=== PATIENT | female | born 2000 | race Caucasian/White ===

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

== ENCOUNTER 2018-03-31 21:17 | Emergency (ER) | payer OTHER ==
[~2018-03-31] VITALS: Ht 175.3 cm; Wt 98.0 kg
[2018-03-31 21:33] VITALS: BP 131/75
--- NOTE | 2018-03-31 21:38 | NUR ---
PT AMBULATED TO LOBBY WITH VSS.
--- NOTE | 2018-03-31 23:02 | NUR ---
PT TO ER BED 3
--- NOTE | 2018-03-31 23:02 | NUR ---
Tunde balbuena in [facility] - 03/31/18 at 2304 by MEDDM TO ER BED 9
--- NOTE | 2018-03-31 23:15 | NUR ---
17 YO F TO ER W/C/O R HAND AND WRIST PAIN . PT STATES "A OLD TV FELL ON MY HAND AFTER TRYING TO MOVE IT" YESTERDAY EVENING . SMALL BRUISE NOTED TO R WRIST. NO SWELLIN OR REDNESS NOTED NO DEFORMITY NOTED. NO OTHER MEDICAL C/O AT THIS TIME. WILL CONTINUE TO MONITOR. 5/10 PAIN, TENDER TO TOUCH. ER MD MADE AWARE. PT POSITIONED FOR COMFORT
--- NOTE | 2018-03-31 23:58 | NUR ---
DR. GARY EVALUATING AT BEDSIDE
[2018-04-01 00:52] VITALS: BP 131/75
--- NOTE | 2018-04-01 00:52 | NUR ---
Patient discharged with v/s stable. Written and verbal after care instructions given and explained. Patient alert, oriented and verbalized understanding of instructions. Ambulatory with steady gait. All questions addressed prior to discharge. ID band removed. Patient advised to follow up with PMD. Rx of IBUPROFEN WAS given. Patient educated on indication of medication including possible reaction and side effects. Opportunity to ask questions provided and answered.
== END 2018-04-01 00:52 | disposition home or self-care (01) ==
LOC: MED 21:17
DX: S60.211A Contusion of right wrist, initial encounter (principal); W31.89XA Contact with other specified machinery, initial encounter; Y93.89 Activity, other specified; Y92.89 Other specified places as the place of occurrence of the external cause; Y99.8 Other external cause status
CPT/HCPCS: 73110; 81002; 81025; 99284

== ENCOUNTER 2018-11-24 18:02 | Emergency (ER) | payer OTHER ==
[~2018-11-24] VITALS: Ht 172.7 cm; Wt 133.4 kg
[2018-11-24 18:11] VITALS: BP 152/76
--- NOTE | 2018-11-24 19:57 | NUR ---
PT TO ED WITH C/O L FOOT PAIN S/P TRIPPING OVER A BACKPACK. SWELLING NOTED WITH LIMITED ROM OF FOOT. CMS INTACT. PEDAL PULSES PRESENT AND REGULAR. NO OBVIOUS DEFROMTIY NOTED. PT PLACED INTO ED CHAIR PENDING PROVIDER EVAL.
[2018-11-24 20:05] VITALS: BP 152/76
== END 2018-11-24 20:05 | disposition home or self-care (01) ==
LOC: MED 18:02
DX: S93.602A Unspecified sprain of left foot, initial encounter (principal); W01.0XXA Fall on same level from slipping, tripping and stumbling without subsequent striking against object, initial encounter; Y93.89 Activity, other specified; Y92.89 Other specified places as the place of occurrence of the external cause; Y99.8 Other external cause status
CPT/HCPCS: 73630; 99283

== ENCOUNTER 2019-05-11 17:21 | Emergency (ER) | payer OTHER ==
[~2019-05-11] VITALS: Ht 175.3 cm; Wt 133.8 kg
[2019-05-11 17:36] VITALS: BP 119/61
--- NOTE | 2019-05-11 17:50 | NUR ---
PT LEFT FOR X-RAY VIA WHEELCHAIR PER TECH.
--- NOTE | 2019-05-11 18:08 | NUR ---
12 LEAD EKG DONE, SHOWED TO AYDEN ADKINS. OK TO WAIT IN LOBBY. PT AMBULATES TO LOBBY IN STABLE CONDITION.
--- NOTE | 2019-05-11 19:05 | NUR ---
AMBULATED TO BED 7.
--- NOTE | 2019-05-11 19:15 | NUR ---
PT BIB SELF WITH C/O CHEST DISCOMFORT X3 MONTHS. PT STATES BUMP IN CENTER OF CHEST THAT IS TENDER TO TOUCH. RR EVEN AND UNLABORED. NO REDNESS OR BRUISING TO AREA. PT DENIES TRAUMA TO CHEST. PT STATES SHE SAW PCP BUT THEY "SAID IT WAS NOTHING" PT HAS NOT TAKEN ANY MEDICATIONS FOR PAIN. VSS AT THIS TIME. MEDHX: DENIES ALLERGIES: DENIES
--- NOTE | 2019-05-11 19:37 | NUR ---
DR. GREEN BEDSIDE EVALUATING PT
[2019-05-11] MEDS ORDERED: KETOROLAC 30 MG/ML VIAL IM ONE (19:40)
[2019-05-11 19:52] VITALS: BP 119/61
--- NOTE | 2019-05-11 19:53 | NUR ---
Patient discharged with v/s stable. Written and verbal after care instructions given and explained. Patient alert, oriented and verbalized understanding of instructions. Ambulatory with to home. All questions addressed prior to discharge. ID band removed. Patient advised to follow up with PMD. Rx of NAPROSYN 500 MG given. Patient educated on indication of medication including possible reaction and side effects. Opportunity to ask questions provided and answered.
== END 2019-05-11 19:53 | disposition home or self-care (01) ==
LOC: MED 17:21
DX: R07.89 Other chest pain (principal); F41.9 Anxiety disorder, unspecified; F32.9 Major depressive disorder, single episode, unspecified
CPT/HCPCS: 71046; 93005; 96372; 99283; J1885

== ENCOUNTER 2019-06-07 17:20 | Emergency (ER) | payer OTHER ==
[~2019-06-07] VITALS: Ht 175.3 cm; Wt 117.5 kg
[2019-06-07 17:29] VITALS: BP 135/115
--- NOTE | 2019-06-07 17:36 | NUR ---
WAIT AT LOBBY
--- NOTE | 2019-06-07 17:40 | NUR ---
PT TAKEN TO X RAY.
--- NOTE | 2019-06-07 17:52 | NUR ---
PATIENT AMBULATED TO BED 1
--- NOTE | 2019-06-07 18:03 | NUR ---
MD AT BEDSIDE EVALUATING PATIENT
--- NOTE | 2019-06-07 18:13 | NUR ---
18 Y/O FEMALE, PRESENTED WITH C/C OF WRIST PAIN DUE TO FALL. PER PATIENT SHE FELL AND HYPEREXTENDED HER RIGHT WRIST, PAIN IS 6/10, RADIATING TO UPPER ARM. PATIENT DENIES HITTING HEAD WHEN FELL. WILL CONTINUE TO MONITOR. SIDE RAIL X1. FAMILY AT BEDSIDE.
[2019-06-07] MEDS ORDERED: IBUPROFEN 800 MG TAB PO ONE (18:15)
--- NOTE | 2019-06-07 19:06 | NUR ---
RECEIVED REPORT FROM ELIAS MARQUEZ. TRANSFER OF CARE AT THIS TIME
--- NOTE | 2019-06-07 19:17 | NUR ---
PT STATES RELIEF OF PAIN. 07/31 ACHING AT THIS TIME
[2019-06-07 19:18] VITALS: BP 133/81
--- NOTE | 2019-06-07 19:18 | NUR ---
Patient discharged with v/s stable. Written and verbal after care instructions given and explained. Patient alert, oriented and verbalized understanding of instructions. Ambulatory with steady gait. All questions addressed prior to discharge. ID band removed. Patient advised to follow up with PMD. Rx of MOTRIN 800MG given. Patient educated on indication of medication including possible reaction and side effects. Opportunity to ask questions provided and answered. ACCOMPANIED BY FRIEND UPON DISCHARGE.
== END 2019-06-07 19:18 | disposition home or self-care (01) ==
LOC: MED 17:20
DX: S63.501A Unspecified sprain of right wrist, initial encounter (principal); W19.XXXA Unspecified fall, initial encounter; Y93.89 Activity, other specified; Y92.89 Other specified places as the place of occurrence of the external cause; Y99.8 Other external cause status
CPT/HCPCS: 73110; 99283

== ENCOUNTER 2019-06-21 11:45 | Emergency (ER) | payer OTHER ==
[~2019-06-21] VITALS: Ht 175.3 cm; Wt 129.8 kg
[2019-06-21 11:55] VITALS: BP 139/76
--- NOTE | 2019-06-21 12:06 | NUR ---
RT WRIST PAIN, SEEN IN ED DX WITH WRIST FRACTURE 2-3WEEKS AGO, PAIN INCREASING. SPLINT IN PLACE.. DENIES N/V/D; SKIN IS PINK/WARM/DRY; AAOX4 WITH EVEN AND STEADY GAIT; LUNGS CLEAR BL; HR EVEN AND REGULAR; PT DENIES ANY FEVER, CP, SOB, OR COUGH AT THIS TIME; PATIENT STATES PAIN OF 5/10 AT THIS TIME; VSS; PATIENT POSITIONED FOR COMFORT; HOB ELEVATED; BEDRAILS UP X2; BED DOWN. ER MD MADE AWARE OF PT STATUS. FAMILY AT BEDSIDE.
--- NOTE | 2019-06-21 12:47 | NUR ---
X-Ray at bedside.
--- NOTE | 2019-06-21 13:31 | NUR ---
applied cindi wrap to right wrist without any issues
[2019-06-21 14:05] VITALS: BP 122/78
== END 2019-06-21 14:03 | disposition home or self-care (01) ==
LOC: MED 11:45
DX: M25.531 Pain in right wrist (principal)
CPT/HCPCS: 73100; 99283

== ENCOUNTER 2019-07-18 14:59 | Emergency (ER) | payer OTHER ==
[~2019-07-18] VITALS: Ht 175.3 cm; Wt 128.4 kg
[2019-07-18 15:10] VITALS: BP 135/99
--- NOTE | 2019-07-18 15:18 | NUR ---
Pt taken to bed 12.
--- NOTE | 2019-07-18 15:27 | NUR ---
18/F C/O NONBLOODY EMESIS "ALL DAY" X 3 DAYS. ALSO REPORTS SORE THROAT, COUGH, CONGESTION X 1 WK. DENIES FEVER, ABD PAIN. AFEBRILE AT TRIAGE. TACHY 120S. BEDRAILS UP X1; ERMD TO EVALUATE.
--- NOTE | 2019-07-18 15:30 | NUR ---
PT TO BATHROOM WITH STEADY GAIT TO PROVIDE URINE SAMPLE.
--- NOTE | 2019-07-18 15:36 | NUR ---
PT VOIDED A FEW CC--ASKED PT TO TRY AGAIN LATER.
--- NOTE | 2019-07-18 15:43 | NUR ---
DR OWUSU EVALUATING PT AT BEDSIDE
[2019-07-18] MEDS ORDERED: KETOROLAC 60 MG/2 ML VIAL IM ONE (16:00)
[2019-07-18] MEDS ORDERED: MECLIZINE 25 MG TAB PO ONE (16:00)
[2019-07-18] MEDS ORDERED: PROMETHAZINE 25 MG/ML VIAL IM ONE (16:00)
[2019-07-18] MEDS ORDERED: ALBUTEROL SULFATE/IPRATROPIU 3 ML SOL IH ONE (16:00)
[2019-07-18] MEDS ORDERED: FAMOTIDINE 20 MG TAB PO ONE (16:00)
--- NOTE | 2019-07-18 16:16 | NUR ---
RT AT BEDSIDE FOR RESPIRATORY INTERVENTION
[2019-07-18 16:46] LABS: APPEARANCE,URINE HAZY (CLEAR); BILIRUBIN,URINE NEGATIVE (NEGATIVE); BLOOD, URINE TRACE-I (NEGATIVE); COLOR,URINE YELLOW (YELLOW); LEUKOCYTE ESTERASE ,URINE NEGATIVE (NEGATIVE); NITRITE, URINE NEGATIVE (NEGATIVE); UGLUCOSE NEGATIVE (NEGATIVE)
[2019-07-18 16:47] LABS: BARBITURATE, URINE NEG. ng/ml (NEG <=200); BENZODIAZEPINE, URINE NEG. ng/mL (NEG <=200); CANNABINOID, URINE NEG. ng/mL (NEG <=50); COCAINE, URINE NEG. ng/mL (NEG <=300); OPIATE, URINE NEG. ng/mL (NEG <=2000); PHENCYCLIDINE SCREEN,URINE NEG. ng/mL (NEG <=25)
--- NOTE | 2019-07-18 17:01 | NUR ---
PT IN BED, NAD, SCROLLING ON PHONE. STATES FEELS "BETTER".
--- NOTE | 2019-07-18 17:44 | NUR ---
DR. OWUSU SPEAKING W/ PT AT BEDSIDE
--- NOTE | 2019-07-18 18:03 | NUR ---
Patient discharged with v/s stable. Written and verbal after care instructions given and explained. Patient alert, oriented and verbalized understanding of instructions. Ambulatory with steady gait. All questions addressed prior to discharge. ID band removed. Patient advised to follow up with PMD. Rx of PHENERGAN AND MOTRIN given. Patient educated on indication of medication including possible reaction and side effects. Opportunity to ask questions provided and answered.
[2019-07-18 18:19] VITALS: BP 134/75
[2019-07-18 21:48] LABS: RBC,URINE 0-5 /HPF (0-5); WBC,URINE 0-5 /HPF (0-5)
== END 2019-07-18 18:03 | disposition home or self-care (01) ==
LOC: MED 14:59
DX: B34.9 Viral infection, unspecified (principal)
CPT/HCPCS: 80305; 81001; 81025; 87804; 94640; 96372; 99283; J1885; J2550; J7620; J8597

== ENCOUNTER 2020-04-21 09:30 | Emergency (ER) | payer OTHER ==
[~2020-04-21] VITALS: Ht 175.3 cm; Wt 113.4 kg
--- NOTE | 2020-04-21 09:41 | NUR ---
Patient ambulated to bed 7. RN evaluating patient at bedside.
[2020-04-21 09:45] VITALS: BP 135/89
--- NOTE | 2020-04-21 09:47 | NUR ---
19 y/o female from home c/o musculoskeletal chest pain since yesterday s/p lifting heavy boxes at work. Pt denies SOB/cough. Pt states she lifted heavy box and woke up with an aching chest pain. Skin warm, dry, intact. RR even and unlabored. 5/10 aching at this time. Positioned for comfort. VSS medhx: depression
--- NOTE | 2020-04-21 10:03 | NUR ---
Dr Delarosa at bedside examining pt
[2020-04-21 10:45] VITALS: BP 135/89
--- NOTE | 2020-04-21 10:46 | NUR ---
Patient discharged with v/s stable. Written and verbal after care instructions given and explained. Patient alert, oriented and verbalized understanding of instructions. Ambulatory with steady gait. All questions addressed prior to discharge. ID band removed. Patient advised to follow up with PMD. Rx of Naprosyn 500mg given. Patient educated on indication of medication including possible reaction and side effects. Opportunity to ask questions provided and answered.
== END 2020-04-21 10:46 | disposition home or self-care (01) ==
LOC: MED 09:30
DX: M79.18 Myalgia, other site (principal); F32.9 Major depressive disorder, single episode, unspecified
CPT/HCPCS: 99282; 99284

== ENCOUNTER 2020-06-09 12:32 | Emergency (ER) | payer OTHER ==
[~2020-06-09] VITALS: Ht 175.3 cm; Wt 122.5 kg
[2020-06-09 12:53] VITALS: BP 123/70
--- NOTE | 2020-06-09 13:03 | NUR ---
WAIT AT LOBBY.
--- NOTE | 2020-06-09 13:20 | NUR ---
PATIENT AMBULATED TO BED 10 AT THIS TIME.
--- NOTE | 2020-06-09 13:25 | NUR ---
19/F comes from home, presents to ED for FOLLOW UP. C/O intermitent 01/28 mid upper chest wall pain & swelling x 4 weeks. seen here same s/s 04/21/20. No edema or erythema noted on the mid chest area. small lump on the upper mid chest wall felt on palpation. Pt states she feels anxious at the moment. ERMD nottified of pt condition. Pt positioned for comfort, bed locked and in lowest position. HX: depression, anxiety NKDA
--- NOTE | 2020-06-09 14:27 | NUR ---
Female Supervisor [employer] accompanied female patient for breast exam.
[2020-06-09 15:12] VITALS: BP 123/70
== END 2020-06-09 15:12 | disposition home or self-care (01) ==
LOC: MED 12:32
DX: R07.9 Chest pain, unspecified (principal)
CPT/HCPCS: 99282

== ENCOUNTER 2020-08-20 14:34 | Emergency (ER) | payer OTHER ==
[~2020-08-20] VITALS: Ht 175.3 cm; Wt 139.7 kg
[2020-08-20 14:38] VITALS: BP 141/88
[2020-08-20] MEDS ORDERED: KETOROLAC 30 MG/ML VIAL IM ONE (15:00)
[2020-08-20 15:36] VITALS: BP 113/48
== END 2020-08-20 15:37 | disposition home or self-care (01) ==
LOC: MED 14:34
DX: R07.89 Other chest pain (principal); F41.9 Anxiety disorder, unspecified; F32.9 Major depressive disorder, single episode, unspecified
CPT/HCPCS: 81025; 93005; 96372; 99283; J1885

== ENCOUNTER 2020-09-23 11:24 | Emergency (ER) | payer OTHER ==
[~2020-09-23] VITALS: Ht 175.3 cm; Wt 138.8 kg
[2020-09-23 11:27] VITALS: BP 149/99
--- NOTE | 2020-09-23 11:30 | NUR ---
PT AMBULATED TO BED 03.
--- NOTE | 2020-09-23 11:33 | NUR ---
19 y/o F BIB self from home with c/c nausea/vomiting x 2 days. Pt states she drank Nyquil 3 nights ago and began vomiting the following morning. Pt states she had 3 episodes of vomiting yesterday, x 1 episode today. States watery/foam/yellow mucus. Pt states recent change in diet (stopped drinking soda) two weeks ago. Pt denies any coffee-ground emesis. Pt denies abdominal pain, dysuria, headache, dizziness, vision changes, SOB, cough, fever/chills; denies pain or any other complaints at this time. front desk monitor in place. Bowel sounds normoactive x 4 quadrants. Bed locked in lowest position, side rails x 1. PMH: Depression, anxiety Meds: Unable to obtain; (states she does not take it due to feeling SI) RAYRAY
--- NOTE | 2020-09-23 12:10 | NUR ---
Dr. Scott is evaluating patient at bedside.
[2020-09-23] MEDS ORDERED: ONDANSETRON 4 MG ODT PO ONE (12:15)
[2020-09-23] MEDS ORDERED: ONDA4TAB PO (12:45)
--- NOTE | 2020-09-23 12:47 | NUR ---
Patient sitting in upright position with both feet to right side of bed. Patient states positive relief, denies nausea at this time. Pt states she feels claustrophobic and anxious. Bed covers opened up for comfort.
[2020-09-23 12:50] VITALS: BP 110/65
== END 2020-09-23 12:50 | disposition home or self-care (01) ==
LOC: MED 11:24
DX: R11.2 Nausea with vomiting, unspecified (principal); Z79.899 Other long term (current) drug therapy
CPT/HCPCS: 99283; Q0162

== ENCOUNTER 2020-10-31 18:11 | Emergency (ER) | payer OTHER ==
[~2020-10-31] VITALS: Ht 175.3 cm; Wt 137.4 kg
[~2020-10-31 18:11] MED LIST: ONDA4TAB PO
[2020-10-31 18:28] VITALS: BP 143/81
[2020-10-31] MEDS ORDERED: CEPH500C16 PO (18:40)
[2020-10-31] MEDS ORDERED: AZIT250T3 PO (18:40)
--- NOTE | 2020-10-31 18:40 | NUR ---
20 YEAR OLD FEMALE COMPLAINS OF TATTOO INFECTION X TODAY. PT STATES THAT TATTOO WAS COMPLETED ON AND CAT SCRATCHED AREA SHORTLY AFTER. PT STATES WHITE/YELLOW PUS AND SITE IS REDDENED. PT AOX4, BREATHING EVEN AND UNLABORED, SKIN WARM AND DRY. BED IN LOWEST POSITION, LOCKED, BED RAIL UPX1. PMH - DEPRESSION, ANXIETY ALLERGIES - NKA
[2020-10-31 18:55] VITALS: BP 143/81
--- NOTE | 2020-10-31 18:56 | NUR ---
Patient discharged with v/s stable. Written and verbal after care instructions about cellulitis given and explained. Patient alert, oriented and verbalized understanding of instructions. Ambulatory with steady gait. All questions addressed prior to discharge. ID band removed. Patient advised to follow up with PMD. Rx of azithromycin, keflex given. Patient educated on indication of medication including possible reaction and side effects. Opportunity to ask questions provided and answered.
== END 2020-10-31 18:56 | disposition home or self-care (01) ==
LOC: MED 18:11
DX: L03.114 Cellulitis of left upper limb (principal)
CPT/HCPCS: 90471; 90715; 99283

== ENCOUNTER 2020-12-05 16:37 | Emergency (ER) | payer OTHER ==
[~2020-12-05] VITALS: Ht 175.3 cm; Wt 137.0 kg
[~2020-12-05 16:37] MED LIST changes: +AZIT250T3 PO; +CEPH500C16 PO
[2020-12-05 16:40] VITALS: BP 121/70
[2020-12-05] MEDS ORDERED: ONDA-24 SL (17:10)
[2020-12-05] MEDS ORDERED: OMEP20EC11 PO (17:10)
[2020-12-05] MEDS ORDERED: ACET-10509 PO (17:10)
[2020-12-05 18:00] VITALS: BP 121/70
== END 2020-12-05 18:00 | disposition home or self-care (01) ==
LOC: MED 16:37
DX: R07.89 Other chest pain (principal); R10.13 Epigastric pain; R11.10 Vomiting, unspecified; Z79.899 Other long term (current) drug therapy
CPT/HCPCS: 71045; 93005; 99283

== ENCOUNTER 2020-12-23 14:52 | Emergency (ER) | payer OTHER ==
[~2020-12-23] VITALS: Ht 175.3 cm; Wt 89.4 kg
[~2020-12-23 14:52] MED LIST changes: +ACET-10509 PO; +OMEP20EC11 PO; +ONDA-24 SL
[2020-12-23 15:06] VITALS: BP 130/74
--- NOTE | 2020-12-23 15:43 | NUR ---
PT AMBULATED TO BED 04.
[2020-12-23] MEDS ORDERED: NAPR-54 PO (16:26)
--- NOTE | 2020-12-23 16:30 | NUR ---
20 YEAR OLD FEMALE COMPLAINS OF CHEST PAIN SINCE THE MORNING. PT ALSO STATES THAT SHE HAS A HEADACHE SINCE MORNING. PT DENIES SOB. PT DENIES N/V/D. PT AOX4, BREATHING EVEN AND UNLABORED, SKIN WARM AND DRY. BED IN LOWEST POSITION, LOCKED, BED RAIL UPX1. PMH - DEPRESSION, ANXIETY ALLERGIES - NKA
--- NOTE | 2020-12-23 16:45 | NUR ---
Patient discharged with v/s stable. Written and verbal after care instructions about costochondritis given and explained. Patient alert, oriented and verbalized understanding of instructions. Ambulatory with steady gait. All questions addressed prior to discharge. ID band removed. Patient advised to follow up with PMD. Rx of naproxen given. Patient educated on indication of medication including possible reaction and side effects. Opportunity to ask questions provided and answered.
[2020-12-23 16:48] VITALS: BP 130/74
== END 2020-12-23 16:45 | disposition home or self-care (01) ==
LOC: MED 14:52
DX: M79.0 Rheumatism, unspecified (principal); Z79.899 Other long term (current) drug therapy
CPT/HCPCS: 71045; 93005; 99283

== ENCOUNTER 2021-01-10 12:13 | Emergency (ER) | payer OTHER ==
[~2021-01-10] VITALS: Ht 175.3 cm; Wt 136.2 kg
[~2021-01-10 12:13] MED LIST changes: +NAPR-54 PO
[2021-01-10 12:19] VITALS: BP 154/69
--- NOTE | 2021-01-10 12:27 | NUR ---
PATIENT AMBULATED TO ER BED 02
--- NOTE | 2021-01-10 12:37 | NUR ---
20 Y/O FEMALE C/O MID CHEST PAIN X TODAY. PT STATES 4/10 SHARP PAIN UPON MOVEMENT. PAIN UPON PALPATION. REPORTS AFTER LIFTING BOXES AT HER JOB FOR 4 HOURS THE PAIN STARTS. PMH: DEPRESSION, ANXIETY, MUSCLE INJURY RAYRAY
--- NOTE | 2021-01-10 12:37 | NUR ---
AYDEN ADKINS AT BEDSIDE EXAMINING PT
[2021-01-10] MEDS ORDERED: CYCL-711 PO (12:55)
[2021-01-10] MEDS ORDERED: IBUP-2213 PO (12:55)
--- NOTE | 2021-01-10 13:07 | NUR ---
Patient discharged with v/s stable. Written and verbal after care instructions given and explained. Patient alert, oriented and verbalized understanding of instructions. Ambulatory with steady gait. All questions addressed prior to discharge. ID band removed. Patient advised to follow up with PMD. Rx of FLEXERIL AND IBUPROFEN given. Patient educated on indication of medication including possible reaction and side effects. Opportunity to ask questions provided and answered.
== END 2021-01-10 13:07 | disposition home or self-care (01) ==
LOC: MED 12:13
DX: S29.011A Strain of muscle and tendon of front wall of thorax, initial encounter (principal); Z79.899 Other long term (current) drug therapy; X58.XXXA Exposure to other specified factors, initial encounter; Y93.89 Activity, other specified; Y92.89 Other specified places as the place of occurrence of the external cause; Y99.8 Other external cause status
CPT/HCPCS: 99283

== ENCOUNTER 2021-05-16 16:35 | Emergency (ER) | payer OTHER ==
[~2021-05-16] VITALS: Ht 175.3 cm; Wt 131.5 kg
[~2021-05-16 16:35] MED LIST changes: +CYCL-711 PO; +IBUP-2213 PO; +ONDA-188 SL; -ONDA-24 SL
[2021-05-16 16:45] VITALS: BP 119/68
--- NOTE | 2021-05-16 16:50 | NUR ---
BIB SELF C/O COUGH, 6/10 HEADACHE, SORE THROAT X 1 WEEK. PMH: DENIES
--- NOTE | 2021-05-16 16:58 | NUR ---
PT AMBULATED TO BED 2.
--- NOTE | 2021-05-16 17:05 | NUR ---
ADRI HASKINS AT BEDSIDE.
[2021-05-16] MEDS ORDERED: PRED20TA5 PO (17:09)
[2021-05-16] MEDS ORDERED: IBUP-2213 PO (17:09)
[2021-05-16] MEDS ORDERED: ALBU0.0912 IH (17:09)
--- NOTE | 2021-05-16 17:18 | NUR ---
PT VERBALIZES DC INSTRUCTIONS. NO ACUTE DISTRESS NOTED. STABLE ON DC.
== END 2021-05-16 17:19 | disposition home or self-care (01) ==
LOC: MED 16:35
DX: J02.9 Acute pharyngitis, unspecified (principal); R05.9 Cough, unspecified; R07.0 Pain in throat; Z79.899 Other long term (current) drug therapy
CPT/HCPCS: 99283

== ENCOUNTER 2021-06-29 21:40 | Emergency (ER) | payer OTHER ==
[~2021-06-29] VITALS: Ht 175.3 cm; Wt 131.5 kg
[~2021-06-29 21:40] MED LIST changes: +ALBU0.0912 IH; +PRED20TA5 PO
[2021-06-29 22:43] VITALS: BP 157/80
--- NOTE | 2021-06-29 23:41 | NUR ---
PT TAKEN TO ER BED 04
[2021-06-30] MEDS ORDERED: NAPR-54 PO (00:59)
[2021-06-30 01:13] VITALS: BP 157/80
== END 2021-06-30 01:03 | disposition home or self-care (01) ==
LOC: MED 21:40
DX: S60.221A Contusion of right hand, initial encounter (principal); J44.9 Chronic obstructive pulmonary disease, unspecified; F32.9 Major depressive disorder, single episode, unspecified; F41.9 Anxiety disorder, unspecified; Z79.899 Other long term (current) drug therapy; W22.8XXA Striking against or struck by other objects, initial encounter; Y93.89 Activity, other specified; Y92.89 Other specified places as the place of occurrence of the external cause; Y99.8 Other external cause status
CPT/HCPCS: 73130; 99283; Q0092

== ENCOUNTER 2021-06-30 11:26 | Emergency (ER) | payer OTHER ==
[~2021-06-30] VITALS: Ht 175.3 cm; Wt 141.1 kg
[2021-06-30 11:36] VITALS: BP 151/96
--- NOTE | 2021-06-30 11:36 | NUR ---
20 y/o f bib self from home, pt states she was told by mental health facility she needed to be evaluated in er, pt states she is having thoughts of harming self or others. pt states she was told she need head scans for syncope/loc. pt states she has been having "blackout" episodes for 1 mo. pmh: depression, anxiety nka med: denies
--- NOTE | 2021-06-30 12:26 | NUR ---
PCR AND DOYLE SWAB COLLECTED AND SENT TO LAB.
[2021-06-30 12:38] LABS: BASOPHILS # (AUTO) 0.2 K/uL (0.00-0.22); BASOPHILS % (AUTO) 3.1 % (0.0-2.0); EOSINOPHILS # (AUTO) 0.3 K/uL (0-0.4); EOSINOPHILS % (AUTO) 4.6 % (0.0-4.0); HEMATOCRIT 37.1 % (36-48); HEMOGLOBIN 12.4 g/dL (12.0-16.0); LYMPHOCYTES # (AUTO) 2.2 K/uL (2.5-16.5); LYMPHOCYTES % (AUTO) 30.7 % (20.5-51.1); MEAN CORPUSCULAR HEMOGLOBIN 30 pg (27-31); MEAN CORPUSCULAR HGB CONC 34 g/dL (33-37); MEAN CORPUSCULAR VOLUME 89.2 fL (80-94); MONOCYTES # (AUTO) 0.5 K/uL (0.8-1.0); MONOCYTES % (AUTO) 7.7 % (1.7-9.3); NEUTROPHILS # (AUTO) 3.8 K/uL (1.8-7.7); NEUTROPHILS % (AUTO) 53.9 % (42.2-75.2); PLATELET COUNT (AUTO) 249 K/uL (140-450); RED BLOOD CELL COUNT(AUTO) 4.16 MIL/uL (4.20-5.40); RED CELL DISTRIBUTION WIDTH 13.7 % (11.6-13.7); WHITE BLOOD COUNT (AUTO) 7.1 K/uL (4.8-10.8)
[2021-06-30 13:02] LABS: ACETAMINOPHEN < 0.5 ug/ml (10-30); ALBUMIN 3.7 g/dL (3.4-5.0); ANION GAP 13.1 (8-16); ASPARTATE AMINOTRANSFERASE 16 U/L (15-37); CHLORIDE 106 mmol/L (98-107); CREATININE 0.8 mg/dL (0.6-1.3); GFR ARICAN-AMERICAN 115 mL/min (>90); GLUCOSE 95 mg/dL (74-106); POTASSIUM 4.1 mmol/L (3.5-5.1); SALICYLATE < 2.8 mg/dL (2.8-20.0); SODIUM SERUM 142 mmol/L (136-145); TOTAL BILIRUBIN 1.3 mg/dL (0.0-1.0); UREA NITROGEN, BLOOD 16 mg/dL (7-18)
[2021-06-30 13:06] LABS: APPEARANCE,URINE CLEAR (CLEAR); BILIRUBIN,URINE NEGATIVE (NEGATIVE); BLOOD, URINE NEGATIVE (NEGATIVE); COLOR,URINE YELLOW (YELLOW); LEUKOCYTE ESTERASE ,URINE NEGATIVE (NEGATIVE); NITRITE, URINE NEGATIVE (NEGATIVE); UGLUCOSE NEGATIVE (NEGATIVE)
[2021-06-30 13:23] LABS: BENZODIAZEPINE, URINE NEGATIVE ng/mL (NEG <=200); CANNABINOID, URINE NEGATIVE ng/mL (NEG <=50); COCAINE, URINE NEGATIVE ng/mL (NEG <=300); OPIATE, URINE NEGATIVE ng/mL (NEG <=2000); PHENCYCLIDINE SCREEN,URINE NEGATIVE ng/mL (NEG <=25)
--- NOTE | 2021-06-30 14:32 | NUR ---
MOTHER AT BEDSIDE.
--- NOTE | 2021-06-30 14:34 | NUR ---
PT SPEAKING WITH PSYCHIATRIST VIA TELEPSYCH.
--- NOTE | 2021-06-30 16:04 | NUR ---
Patient appears to be resting in bed. Vital Signs within normal limits. Respirations even and unlabored.
--- NOTE | 2021-06-30 16:49 | NUR ---
TELE PSYCH DR Richter CLEARED PT TO GO HOME/DISCARGE PT HOME WITH THE UNDERSTANDING PT IS NOT TO DRIVE TILL SHE IS CLEARED BY A NEUROLOGIST. ER MD DR DELUCA NOTIFTED
[2021-06-30 17:10] VITALS: BP 136/81
--- NOTE | 2021-06-30 17:10 | NUR ---
Patient discharged with v/s stable. Written and verbal after care instructions given FOR HAND CONTUSION AND DID and explained. Patient verbalized understanding. Ambulatory with steady gait. All questions addressed prior to discharge. Advised to follow up with PMD.
[2021-06-30 22:22] LABS: BARBITURATE, URINE NEGATIVE ng/ml (NEG <=200)
== END 2021-06-30 17:10 | disposition home or self-care (01) ==
LOC: MED 11:26
DX: F44.89 Other dissociative and conversion disorders (principal); Z20.822 Contact with and (suspected) exposure to COVID-19
CPT/HCPCS: 36415; 70450; 73130; 80053; 80305; 81003; 81025; 85025; 87426; 93005; 99285; G0480; G0482; Q0092; U0003

== ENCOUNTER 2021-11-22 10:41 | Emergency (ER) | payer OTHER ==
[~2021-11-22] VITALS: Ht 175.3 cm; Wt 138.9 kg
[2021-11-22 11:05] VITALS: BP 133/79
--- NOTE | 2021-11-22 11:11 | NUR ---
PT TAKEN TO X RAY
--- NOTE | 2021-11-22 11:19 | NUR ---
PT TO ER BED 5
--- NOTE | 2021-11-22 11:25 | NUR ---
21 Y/O F BIB SELF C/O LEFT HAND PAIN/10 S/P STUCKED IN HOUSE'S DOOR X TODAY. NKA NO MEDS PMH: ANXIEY, BIPOLAR, DEPRESSION
[2021-11-22] MEDS ORDERED: IBUP-1842 PO (12:03)
[2021-11-22 12:12] VITALS: BP 133/79
--- NOTE | 2021-11-22 12:12 | NUR ---
The patient's care was reviewed and supervised by Heidi Gustafson, RN, RN.
--- NOTE | 2021-11-22 12:12 | NUR ---
Patient discharged with v/s stable. Written and verbal after care instructions given and explained. Patient alert, oriented and verbalized understanding of instructions. Ambulatory with steady gait. All questions addressed prior to discharge. ID band removed. Patient advised to follow up with PMD. Rx of ibuprofen (sent) given. Patient educated on indication of medication including possible reaction and side effects. Opportunity to ask questions provided and answered. work note provided
--- NOTE | 2021-11-22 12:12 | NUR ---
no nursing interventions done at this time
--- NOTE | 2021-11-22 12:13 | NUR ---
Chart checked and completed. The patient's care was reviewed and supervised by Elle Garcia RN.
== END 2021-11-22 12:12 | disposition home or self-care (01) ==
LOC: MED 10:41
DX: S60.222A Contusion of left hand, initial encounter (principal); J44.9 Chronic obstructive pulmonary disease, unspecified; Z79.899 Other long term (current) drug therapy; W23.0XXA Caught, crushed, jammed, or pinched between moving objects, initial encounter; Y93.89 Activity, other specified; Y92.89 Other specified places as the place of occurrence of the external cause; Y99.8 Other external cause status
CPT/HCPCS: 73130; 99283

== ENCOUNTER 2022-03-03 10:31 | Emergency (ER) | payer MEDICAID, OTHER ==
[~2022-03-03] VITALS: Ht 175.3 cm; Wt 134.7 kg
[~2022-03-03 10:31] MED LIST changes: +IBUP-1842 PO
[2022-03-03 10:47] VITALS: BP 135/96
--- NOTE | 2022-03-03 11:05 | NUR ---
PT OFFERED URINE CUP, PT REFUSED
--- NOTE | 2022-03-03 11:25 | NUR ---
PT CALLED, NOT SEEN IN LOBBY OR PARKING LOT
--- NOTE | 2022-03-03 11:50 | NUR ---
PT CALLED NOT SEEN IN LOBBY OR PARKING LOT
--- NOTE | 2022-03-03 11:55 | NUR ---
PATIENT LEFT WITHOUT BEING SEEN BY DR. RODRIGUEZ. NO FURTHER CARE PROVIDED FOR PATIENT.
== END 2022-03-03 11:55 | disposition left against medical advice (07) ==
LOC: MED 10:31
DX: M54.50 Low back pain, unspecified (principal); Z53.21 Procedure and treatment not carried out due to patient leaving prior to being seen by health care provider

== ENCOUNTER 2024-02-11 20:09 | Emergency (ER) | payer MEDICAID, OTHER ==
[~2024-02-11] VITALS: Ht 175.3 cm; Wt 147.4 kg
[~2024-02-11 20:09] MED LIST changes: +NAPR-337 PO; -NAPR-54 PO
[2024-02-11 20:28] VITALS: BP 128/89; PULSE 94; RESP 16; TEMP 97.7; O2SAT 98
[2024-02-11 21:50] VITALS: O2SAT 98
[2024-02-11 22:56] VITALS: BP 131/91; PULSE 92; RESP 16; TEMP 98; O2SAT 98
== END 2024-02-11 23:00 | disposition home or self-care (01) ==
LOC: MED 20:09
DX: R60.0 Localized edema (principal); J44.9 Chronic obstructive pulmonary disease, unspecified; F41.9 Anxiety disorder, unspecified; Z79.899 Other long term (current) drug therapy
CPT/HCPCS: 93971; 99284